=== PATIENT | male | born 1980 | race Caucasian/White ===

== ENCOUNTER 2023-02-16 04:05 | Emergency (ER) | payer OTHER, SELFPAY ==
--- NOTE | ~2023-02-16 | CT_ITS ---
EXAMINATION: CT ABDOMEN AND PELVIS WITHOUT CONTRAST CLINICAL INFORMATION: Flank pain. Question stone. COMPARISON: None available. TECHNIQUE: Multidetector volumetric imaging was performed from the superior aspect of the liver through the pubic symphysis. Sagittal and coronal reformatted images were obtained on the technologist's workstation. This CT examination was performed using dose optimization techniques as appropriate, variously including the following: *Automated exposure control *Adjustment of mA and/or kV according to patient size (this includes techniques or standardized protocols for targeted exams where dose is matched to indication/reason for exam; i.e. extremities or head) *Use of iterative reconstruction technique DLP: 506 mGy-cm FINDINGS: LUNG BASES: The visualized lung bases are unremarkable. LIVER, GALLBLADDER, AND BILIARY TREE: The liver is normal in size, shape, and attenuation. No focal hepatic lesion or biliary ductal dilatation is present. The gallbladder is unremarkable with no evidence of radiopaque gallstones, gallbladder wall thickening, or obvious pericholecystic inflammatory changes. PANCREAS: Unremarkable. SPLEEN: Unremarkable. ADRENAL GLANDS: Unremarkable. KIDNEYS AND URETERS: The kidneys are normal in size, shape, and attenuation. Mild right hydroureteronephrosis. 0.2 cm calculus in the distal right ureter approximately 1 cm proximal to the right ureterovesicular junction. Nonobstructing right lower pole 0.2 cm calculus is 12 cm from the posterior axillary line. BLADDER: Unremarkable. GASTROINTESTINAL TRACT: The stomach is unremarkable. Normal caliber small bowel. No obstruction. The appendix is likely absent. Fecalization of the distal ileum suggestive of slow transit. No colonic wall thickening or inflammation. No free air or free fluid. ABDOMINAL WALL: No significant hernia is appreciated. LYMPH NODES: Normal. VASCULAR: Unremarkable. PELVIC VISCERA: The prostate and seminal vesicles are unremarkable. OSSEOUS STRUCTURES: Mild degenerative changes. No acute or suspicious abnormality. CT/CT abdomen pelvis wo IV con IMPRESSION: Mild right hydroureteronephrosis with a 0.2 cm distal ureteral obstructing calculus. Fleischner guidelines were followed.
[2023-02-16 04:07] VITALS: BP 127/79; PULSE 84; RESP 16; TEMP 36.4; O2SAT 98; BMI 29.9
--- NOTE | 2023-02-16 04:30 | ED_ITS ---
HPI - General Adult General Chief complaint: General Medical Stated complaint: Back pain/Nausea Time Seen by Provider: 02/16/23 04:23 Source: patient Mode of arrival: ambulatory Limitations: no limitations History of Present Illness HPI narrative: Patient with no significant past medical history woke up from sleep with bilateral flank pain more on the right than the left with right upper abdominal pain with nausea and vomiting very restless no urinary symptoms no hematuria no history of kidney stones no family history of kidney stones Related Data Previous Rx's Medication Instructions Recorded oxycodone 5 mg tablet 5 mg PO Q6H PRN pain #20 tabs 02/16/23 tamsulosin 0.4 mg capsule (Flomax) 0.4 mg PO BEDTIME #14 caps 02/16/23 Allergies Allergy/AdvReac Type Severity Reaction Status Date / Time ibuprofen [IBUPROFEN] Allergy Mild TACHYCARDIA Verified 02/16/23 05:52 Review of Systems Review of Systems: Yes all other systems are reviewed and are negative [facility] Social History Social History Alcohol intake: never Smoked in Last 30 Days: No Use of substances other than those prescribed or required for medical reasons: No Advance Directives: No Advance Directives Information Provided: No Physical Exam ED Vital Signs: Vital Signs - 24 hr 02/16/23 04:07 02/16/23 05:19 02/16/23 04:33 Temperature 97.6 F 98.0 F 98.1 F Pulse Rate 84 71 64 Respiratory Rate 16 13 16 Blood Pressure 127/79 114/80 122/83 Pulse Oximetry 98 97 96 Oxygen Delivery Method Room Air Room Air Room Air BMI result Body Mass Index 29.9 Appearance: Alert. Oriented X3. In moderate distress. ENT: Pharynx normal. Oral Mucosa moist Neck: Normal inspection. Neck supple. CVS: Normal heart rate and rhythm. Pulses normal. Respiratory: No respiratory distress. Equal air entry bilateral, no wheezing/rales/rhonchi Abdomen: Soft and nontender. Bowel sounds are present, no mass palpable, bilateral CVA tenderness back: No midline tenderness Skin: Skin warm and dry. Normal skin color. Normal skin turgor. Extremities: No lower extremity edema. No calf tenderness Neuro: Oriented X 3. No motor deficit. Medications Administered Discontinued Medications Generic Name Dose Route Start Last Admin Trade Name Freq PRN Reason Stop Dose Admin Sodium Chloride 1,000 mls @ 999 mls/hr 02/16/23 04:33 02/16/23 05:52 Ns IV 02/16/23 05:33 Infused .Q1H1M ONE Infusion Ketorolac Tromethamine 30 mg 02/16/23 05:09 02/16/23 05:15 Ketorolac Tromethamine 30 Mg/Ml Vial IVPUSH 02/16/23 05:10 30 mg ONCE ONE Administration Morphine Sulfate 4 mg 02/16/23 04:33 02/16/23 04:44 Morphine Sulfate 4 Mg/Ml Cartridge IVPUSH 02/16/23 04:34 4 mg ONCE ONE Administration Protocol Ondansetron HCl 4 mg 02/16/23 04:33 02/16/23 04:44 Ondansetron Hcl 4 Mg/2 Ml Vial IVPUSH 02/16/23 04:34 4 mg ONCE ONE Administration Tamsulosin HCl 0.4 mg 02/16/23 05:54 02/16/23 06:13 Tamsulosin Hcl 0.4 Mg Capsule PO 02/16/23 05:55 0.4 mg ONCE ONE Administration Medical Decision Making Medical Decision Making [facility] Narrative: Patient with acute flank pain CT scan showed Mild right hydroureteronephrosis with a 0.2 cm distal ureteral obstructing calculus patient feeling much better at this time after pain medication IV fluids pain is almost gone will discharge patient home on analgesics and Flomax advised to follow with urologist Lab Data [facility] Lab Attestation statement: I reviewed the patient's lab results. 02/16/23 05:59 02/16/23 05:59 Labs: Lab Results 02/16/23 02/16/23 02/16/23 Range/Units 05:59 05:59 06:15 WBC 5.0 (4.8-10.8) X10*3/uL RBC 4.57 L (4.60-5.80) X10*6/uL Hgb 13.5 L (14.0-18.0) g/dl Hct 41.5 L (42.0-52.0) % MCV 90.8 (80.0-98.0) fL MCH 29.5 (27.0-33.0) pg MCHC 32.5 (31.0-36.0) g/dl RDW 13.3 (11.0-16.0) % Plt Count 121 L (160-400) X10*3/uL MPV 11.8 (9.4-12.4) fL Immature Gran % (Auto) 0.2 (0.0-0.4) % Neut % (Auto) 72.9 (45-73) % Lymph % (Auto) 17.2 L (20-40) % [place] % (Auto) 5.5 (2-11) % Eos % (Auto) 3.4 (0-4) % Baso % (Auto) 0.8 (0-2) % Lymph # (Auto) 0.9 L (1.2-4.9) X10*3/uL [place] # (Auto) 0.3 (0.1-1.2) X10*3/uL Eos # (Auto) 0.2 (0.0-0.4) X10*3/uL Baso # (Auto) 0.0 (0.0-0.2) X10*3/uL Abs Immat Gran (auto) 0.01 (0.00-0.03) X10*3/uL Absolute Neuts (auto) 3.6 (2.0-8.3) x10*3/uL Absolute Nucleated RBC 0.000 (0.0-0.012) X10*3/uL Nucleated RBC % (auto) 0.0 (0.0-0.2) /100WBC Sodium 141 (135-145) mmol/L Potassium 4.3 (3.3-5.1) mmol/L Chloride 109 H (96-108) mmol/L Carbon Dioxide 25 (22-29) mmol/L Anion Gap 11 L (12-20) BUN 18 H (9-16) mg/dL Creatinine 1.04 (0.5-1.4) mg/dL Estim Creat Clear Calc 93.3 Estimated GFR > 60 Random Glucose 113 (60-115) mg/dL Calcium 7.9 L (8.4-10.2) mg/dL Total Bilirubin 1.1 H (0.0-1.0) mg/dL AST 20 (5-37) U/L ALT 34 (0-40) U/L Alkaline Phosphatase 37 L (39-117) U/L Total Protein 5.6 L (6.5-8.0) g/dL Albumin 3.6 (3.5-5.0) g/dL Urine Color Yellow Urine Appearance Clear Urine pH 5.5 (5.0-9.0) Ur Specific [place] 1.025 (1.005-1.025) Urine Protein Negative (Neg-Trace) mg/dL Urine Glucose (UA) Negative (Negative) mg/dL Urine Ketones Trace (Negative) mg/dL Urine Blood Large (3+) H (Negative) Urine Nitrite Negative (Negative) Ur Leukocyte Esterase Negative (Negative) Urine RBC >20 H (0-2) /HPF Urine WBC 0-5 (0-5) /HPF Ur Squamous Epith Cells 0-2 (0-2) /HPF Urine Bacteria None Seen (None Seen) Hyaline Casts 0-2 (0-2) /LPF Radiology Impression Discussion of test interpretation with radiology: I have reviewed the radiologist's reading. Radiologist Impression: CT/CT abdomen pelvis wo IV con IMPRESSION: Mild right hydroureteronephrosis with a 0.2 cm distal ureteral obstructing calculus. ? Discharge Plan Discharge Clinical Impression: Kidney stone on right side Patient Disposition: Home, Self-Care Instructions: Kidney Stones (ED) Additional Instructions: Drink plenty of fluids Pain medication as prescribed Flomax to keep the tube open till you pass the stone Follow-up with urologist if not better Prescriptions: New oxycodone 5 mg tablet 5 mg PO Q6H PRN (Reason: pain) Qty: 20 0RF Rx Instructions: Partial Fill upon patient request. tamsulosin [Flomax] 0.4 mg capsule 0.4 mg PO BEDTIME Qty: 14 0RF Referrals: Shiva Triana MD [Physician] - 1 week
[2023-02-16 04:33] VITALS: BP 122/83; PULSE 64; RESP 16; TEMP 36.7; O2SAT 96
[2023-02-16] MEDS: 0.9 % Sodium Chloride 1,000 ML 999 ML IV (04:44)
[2023-02-16] MEDS: Morphine Sulfate 4 MG/ML CARTRIDGE IVPUSH (04:44)
[2023-02-16] MEDS: ondansetron HCL 4 MG/2 ML VIAL IVPUSH (04:44)
[2023-02-16] MEDS: Ketorolac Tromethamine 30 MG/ML VIAL IVPUSH (05:15)
--- NOTE | 2023-02-16 05:17 | PC.NURSE ---
pt c/o lower back pain, n/v, multiple episodes of vomiting, pt is pacing and restless aox4
[2023-02-16 05:19] VITALS: BP 114/80; PULSE 71; RESP 13; TEMP 36.7; O2SAT 97
--- NOTE | 2023-02-16 05:24 | PC.NURSE ---
pt no longer pacing/restless, pt is resting quietly in bed, no apparent distress aox4 vs assessed, wnl will ctm
[2023-02-16 06:04] LABS: MANUAL DIFF FLAG NO
[2023-02-16 06:09] LABS: Basophils Percent Auto 0.8 % (0-2); Eosinophils Absolute Auto 0.2 X10*3/uL (0.0-0.4); Eosinophils Percent Auto 3.4 % (0-4); Hematocrit 41.5 % (42.0-52.0); Hemoglobin 13.5 g/dl (14.0-18.0); Imm Gran Abs Auto 0.01 X10*3/uL (0.00-0.03); Imm Gran Pct Auto 0.2 % (0.0-0.4); Lymphocytes Absolute Auto 0.9 X10*3/uL (1.2-4.9); Lymphocytes Percent Auto 17.2 % (20-40); Mean Corpuscular HGB Conc 32.5 g/dl (31.0-36.0); Mean Corpuscular Hemoglobin 29.5 pg (27.0-33.0); Mean Corpuscular Volume 90.8 fL (80.0-98.0); Mean Platelet Volume 11.8 fL (9.4-12.4); Monocytes Absolute Auto 0.3 X10*3/uL (0.1-1.2); Monocytes Percent Auto 5.5 % (2-11); Neutrophils Absolute Auto 3.6 x10*3/uL (2.0-8.3); Neutrophils Percent Auto 72.9 % (45-73); Platelet Count 121 X10*3/uL (160-400); Red Blood Count 4.57 X10*6/uL (4.60-5.80); Red Cell Distribution Width 13.3 % (11.0-16.0)
[2023-02-16] MEDS: Tamsulosin HCL 0.4 MG CAPSULE PO (06:13)
--- NOTE | 2023-02-16 06:15 | PC.NURSE ---
this nurse taz labs and sent vias tube system urine obtained and sent to lab
[2023-02-16 06:22] LABS: Appearance Urine Clear; Color Urine Yellow; Glucose Urine UA Negative (Negative); Leukocyte Esterase Urine Negative (Negative); Nitrite Urine Negative (Negative); PH 5.5 (5.0-9.0); Specific Gravity - Urine 1.025 (1.005-1.025); UMIC TRIGGER UACC YES; Urine Blood Large (3+) (Negative); Urine Ketones Trace mg/dL (Negative); Urine Protein Negative (Neg-Trace)
[2023-02-16 06:30] LABS: Alanine Aminotransferase 34 U/L (0-40); Albumin Level 3.6 g/dL (3.5-5.0); Alkaline Phosphatase 37 U/L (39-117); Anion Gap 11 (12-20); Aspartate Amino Transferase 20 U/L (5-37); Bilirubin Total 1.1 mg/dL (0.0-1.0); Blood Urea Nitrogen 18 mg/dL (9-16); Calcium 7.9 mg/dL (8.4-10.2); Carbon Dioxide 25 mmol/L (22-29); Chloride 109 mmol/L (96-108); Creatinine Clr Calc Pharmacy 93.3; Estimated Glomerular Filt Rate > 60; Glucose Random 113 mg/dL (60-115); Potassium 4.3 mmol/L (3.3-5.1); Sodium 141 mmol/L (135-145); Total Protein 5.6 g/dL (6.5-8.0)
[2023-02-16 06:35] LABS: Bacteria Urine None Seen (None Seen); Hyaline Casts Urine 0-2 /LPF (0-2); RBC Urine >20 /HPF (0-2); Squamous Epithelial Cell Urine 0-2 /HPF (0-2); WBC Urine 0-5 /HPF (0-5)
--- NOTE | 2023-02-16 06:38 | PC.NURSE ---
Discharge instructions given/explained to pt Ambulates safely/independently No apparent distress aox4 IV cath intact upon removal
== END 2023-02-16 06:38 | disposition home or self-care (01) ==
PROVIDERS: Emergency Provider Internal Medicine; PCP Internal Medicine
DX: N13.2 Hydronephrosis with renal and ureteral calculous obstruction (principal)
CPT/HCPCS: 36415; 74176; 80053; 81001; 85025; 96361; 96374; 96375; 99285; J1885; J2270; J2405

== ENCOUNTER 2023-04-25 11:27 | Outpatient (REF) | payer OTHER, SELFPAY ==
[2023-04-25 13:11] LABS: MANUAL DIFF FLAG NO
[2023-04-25 13:16] LABS: Basophils Percent Auto 0.6 % (0-2); Eosinophils Absolute Auto 0.4 X10*3/uL (0.0-0.4); Eosinophils Percent Auto 7.7 % (0-4); Hematocrit 49.6 % (42.0-52.0); Hemoglobin 16.7 g/dl (14.0-18.0); Lymphocytes Absolute Auto 1.9 X10*3/uL (1.2-4.9); Lymphocytes Percent Auto 38.9 % (20-40); Mean Corpuscular HGB Conc 33.7 g/dl (31.0-36.0); Mean Corpuscular Hemoglobin 30.1 pg (27.0-33.0); Mean Corpuscular Volume 89.4 fL (80.0-98.0); Mean Platelet Volume 11.9 fL (9.4-12.4); Monocytes Absolute Auto 0.4 X10*3/uL (0.1-1.2); Monocytes Percent Auto 8.6 % (2-11); Neutrophils Absolute Auto 2.1 x10*3/uL (2.0-8.3); Neutrophils Percent Auto 44.2 % (45-73); Platelet Count 165 X10*3/uL (160-400); Red Blood Count 5.55 X10*6/uL (4.60-5.80); Red Cell Distribution Width 12.7 % (11.0-16.0); White Blood Count 4.8 X10*3/uL (4.8-10.8)
[2023-04-25 13:30] LABS: Alanine Aminotransferase 44 U/L (0-40); Albumin Level 4.2 g/dL (3.5-5.0); Alkaline Phosphatase 42 U/L (39-117); Anion Gap 10 (12-20); Aspartate Amino Transferase 25 U/L (5-37); Bilirubin Total 1.2 mg/dL (0.0-1.0); Blood Urea Nitrogen 17 mg/dL (9-16); Calcium 9.5 mg/dL (8.4-10.2); Carbon Dioxide 30 mmol/L (22-29); Chloride 106 mmol/L (96-108); Cholesterol 166 mg/dL; Estimated Glomerular Filt Rate > 60; Glucose Random 81 mg/dL (60-115); HDL Cholesterol 53 mg/dL; LDL Cholesterol Calculated 98 mg/dl; Potassium 4.3 mmol/L (3.3-5.1); Sodium 142 mmol/L (135-145); Triglycerides 78 mg/dL
== END 2023-04-25 11:28 | disposition home or self-care (01) ==
LOC: HO.10HDL 11:27
PROVIDERS: Visit Provider Internal Medicine
DX: Z00.00 Encounter for general adult medical examination without abnormal findings (principal); J45.909 Unspecified asthma, uncomplicated; Z13.31 Encounter for screening for depression
CPT/HCPCS: 36415; 80053; 80061; 85025

== ENCOUNTER 2023-12-03 07:58 | Emergency (ER) | payer OTHER, SELFPAY ==
--- NOTE | ~2023-12-03 | CT_ITS ---
EXAMINATION: CT ABDOMEN AND PELVIS WITHOUT CONTRAST CLINICAL INFORMATION: Right-sided flank pain. Urinary hesitancy. COMPARISON: CT abdomen pelvis February 16, 2023 TECHNIQUE: Multidetector volumetric imaging was performed from the superior aspect of the liver through the pubic symphysis. Sagittal and coronal reformatted images were obtained on the technologist's workstation. This CT examination was performed using dose optimization techniques as appropriate, variously including the following: *Automated exposure control *Adjustment of mA and/or kV according to patient size (this includes techniques or standardized protocols for targeted exams where dose is matched to indication/reason for exam; i.e. extremities or head) *Use of iterative reconstruction technique DLP: 554 mGy-cm FINDINGS: Visualized lung bases demonstrate mild dependent atelectasis. The liver is normal in size. The gallbladder is normal in appearance. The pancreas, spleen and adrenal glands are unremarkable. Symmetrically sized kidneys. There is mild right-sided hydronephrosis secondary to a 2 mm calculus within the distal right ureter, almost identical in appearance to CT imaging from February 16, 2023. No other renal calculi are noted within either kidney. There is no hydronephrosis of either kidney. Normal caliber loops of small and large bowel. Mild colonic diverticulosis without CT evidence to suggest active diverticulitis. Surgical changes of the cecum consistent with prior appendectomy. Normal caliber abdominal aorta. No retroperitoneal lymphadenopathy. Tiny fat-containing umbilical hernia. The bladder is decompressed and therefore not accurately evaluated. The prostate gland is not enlarged. No gross free pelvic fluid. No inguinal lymphadenopathy. Mild diffuse degenerative changes of the spine. Left L5 pars defect. CT/CT abdomen pelvis wo IV con IMPRESSION: Mild right-sided hydronephrosis secondary to a 2 mm calculus within the distal right ureter, almost identical in appearance to CT imaging from February 16, 2023. Fleischner guidelines were followed.
[2023-12-03 08:10] VITALS: BP 126/80; PULSE 70; RESP 18; TEMP 36.2; O2SAT 98; BMI 29.7
--- NOTE | 2023-12-03 08:53 | ED.GENADULT ---
HPI - General Adult General Chief complaint: General Medical Stated complaint: Kidney stone Time Seen by Provider: 12/03/23 08:53 Source: patient, RN notes reviewed and old records reviewed Mode of arrival: ambulatory History of Present Illness HPI narrative: 43-year-old male with past medical history of renal stones presenting to the ED complaining of right flank pain radiating to right lower quadrant with associated urinary hesitancy and feeling of incomplete emptying x this morning. Admits symptoms feel similar to prior stones in the past. Reports associated nausea and vomiting. Denies fever/chills, dysuria/hematuria Related Data Previous Rx's Medication Instructions Recorded oxycodone 5 mg tablet 5 mg PO Q6H PRN pain #20 tabs 02/16/23 tamsulosin 0.4 mg capsule (Flomax) 0.4 mg PO BEDTIME #14 caps 02/16/23 oxycodone-acetaminophen 5 mg-325 1 tab PO Q8H PRN pain (scale score 12/03/23 mg tablet (Percocet) 7-10) 3 days #9 tabs tamsulosin 0.4 mg capsule (Flomax) 0.4 mg PO DAILY #14 caps 12/03/23 Allergies Allergy/AdvReac Type Severity Reaction Status Date / Time ibuprofen [IBUPROFEN] Allergy Mild TACHYCARDIA Verified 12/03/23 08:15 Review of Systems Review of Systems: Constitutional: No Fever, No Chills ENT/Mouth: No Ear Pain, No Nasal Congestion, No sore throat, No Rhinorrhea, No Swallowing Difficulty Cardiovascular: No Chest Pain, No SOB Respiratory: No Cough, No Sputum Gastrointestinal: +Nausea,+ Vomiting, No Diarrhea, No Constipation, + Abdominal pain Genitourinary: No Dysuria, No Urinary Frequency, No Hematuria, No Urinary Incontinence/retention, +hesitancy/Urgency, No Flank Pain Musculoskeletal: No joint pain, No Myalgias Skin: No Skin Lesions, No rash Neuro: No Weakness Yes all other systems are reviewed and are negative Constitutional: Constitutional: Reports as per [facility] Past Medical History Attestation statement: The following information was validated with the patient. Source: old records reviewed Onset Date is defined in the Problem List Problems that require an onset date and time if occurred within 24 hrs of arrival to the ED Aortic Dissection and Rupture; Neurologic impairment; Cardiopulmonary Arrest; Endotracheal Intubation; Insertion or Replacement of Mechanical Circulatory Assist Device Social History Social History Alcohol intake: never Smoked in Last 30 Days: No Use of substances other than those prescribed or required for medical reasons: No Advance Directives: No Physical Exam ED Vital Signs: Vital Signs - 24 hr 12/03/23 08:10 12/03/23 09:38 12/03/23 12:05 Temperature 97.1 F 97.7 F Pulse Rate 70 62 73 Respiratory Rate 18 18 18 Blood Pressure 126/80 108/54 L 120/73 Pulse Oximetry 98 98 98 Oxygen Delivery Method Room Air Room Air Room Air BMI result Body Mass Index 29.7 Const Other: appears uncomfortable General: cooperative and no acute distress Orientation/consciousness: patient oriented x3 Limitations: no limitations HENMT Head: Yes normal to inspection and Yes atraumatic Ears: hearing grossly normal bilaterally General nose exam: Normal external nose present Face and sinus: Yes normal facial exam Eyes General: appearance normal, both eyes and all related structures EOM: EOMs intact bilaterally Neck Neck: Yes normal visual inspection and Yes no meningeal signs Resp Effort & Inspection: normal respiratory effort and no respiratory distress Auscultation: clear to auscultation bilaterally Cardio Rate: regular rate Heart sounds: S1 normal heart sound present and S2 normal heart sound present GI Inspection: Yes normal to inspection Palpation (GI): Soft to palpation, Tenderness to palpation present (GI) in the RLQ and suprapubicly; with no rebound tenderness, no guarding and not rigid General: Yes CVA tenderness on the right Back/Spine/Pelvis Back: CVA tenderness Skin Rashes: no rashes Wounds: no wounds Neuro General: patient oriented x3, tone normal and no meningeal signs Cranial nerves: Yes CN's II-XII intact bilaterally Gait exam (Neuro): Normal gait present Extrem General: Yes normal to inspection Course Course Course Narrative: -labs reassuring. UA with RBCs, not infected CT abdomen pelvis wo IV con IMPRESSION: Mild right-sided hydronephrosis secondary to a 2 mm calculus within the distal right ureter, almost identical in appearance to CT imaging from February 16, 2023. Fleischner guidelines were followed. > 1124--on re-evaluation patient still writhing/standing and hunched over in pain, appears very uncomfortable. Recently receive 2nd dose of IV morphine, will give IV Dilaudid and Reglan consult Urology, Dr. Alves -Urology recommended 1mg of Ativan, 20mg of Prednisone x1 time dose, and Toradol (although will avoid Toradol due to patient's adverse reaction to ibuprofen), 2mm stone will pass as outpatient, recommended discharge home with Flomax. Will order additional pain control and re-evaluate for potential discharge if pain controlled -1352-on re-evaluation patient reports symptomatic improvement. Feels safe for discharge home at this time. Recommended close Urology follow-up Results discussed with patient including worrisome signs and symptoms and strict return precautions, and when to return to the emergency department. They verbalized understanding and feel safe for discharge at this time. Medications Administered Discontinued Medications Generic Name Dose Route Start Last Admin Trade Name Freq PRN Reason Stop Dose Admin Hydromorphone HCl 1 mg 12/03/23 11:23 12/03/23 11:30 Hydromorphone Hcl 1 Mg/Ml Syringe IVPUSH 12/03/23 11:24 1 mg ONCE ONE Administration Protocol Sodium Chloride 1,000 mls @ 999 mls/hr 12/03/23 09:00 12/03/23 10:13 Ns IV 12/03/23 10:00 Infused .Q1H1M ELLIE Infusion Sodium Chloride 1,000 mls @ 999 mls/hr 12/03/23 10:45 12/03/23 12:04 Ns IV 12/03/23 11:45 Infused .Q1H1M ELLIE Infusion Lorazepam 1 mg 12/03/23 11:48 12/03/23 12:03 Lorazepam 1 Mg Tablet PO 12/03/23 11:49 1 mg ONCE ONE Administration Metoclopramide HCl 10 mg 12/03/23 11:23 12/03/23 11:30 Metoclopramide Hcl 10 Mg/2 Ml Vial IVPUSH 12/03/23 11:24 10 mg ONCE ONE Administration Morphine Sulfate 2 mg 12/03/23 08:56 12/03/23 09:12 Morphine Sulfate 2 Mg/Ml Cartridge IVPUSH 12/03/23 08:57 2 mg ONCE ONE Administration Protocol Morphine Sulfate 2 mg 12/03/23 10:30 12/03/23 11:00 Morphine Sulfate 2 Mg/Ml Cartridge IVPUSH 12/03/23 10:31 2 mg ONCE ONE Administration Protocol Ondansetron HCl 4 mg 12/03/23 08:56 12/03/23 09:12 Ondansetron Hcl 4 Mg/2 Ml Vial IVPUSH 12/03/23 08:57 4 mg ONCE ONE Administration Prednisone 20 mg 12/03/23 11:48 12/03/23 12:03 Prednisone 20 Mg Tablet PO 12/03/23 11:49 20 mg ONCE ONE Administration Tamsulosin HCl 0.4 mg 12/03/23 10:34 12/03/23 11:00 Tamsulosin Hcl 0.4 Mg Capsule PO 12/03/23 10:35 0.4 mg ONCE ONE Administration Medical Decision Making Medical Decision Making [facility] Narrative: 43-year-old male with past medical history of renal stones presenting to the ED complaining of right flank pain radiating to right lower quadrant with associated urinary hesitancy and feeling of incomplete emptying x this morning. On exam vital signs stable, appears uncomfortable, right CVAT noted as well as right lower quadrant/suprapubic tenderness, no rebound or guarding. Concern for renal stone vs UTI/pyelo. Cholecystitis/lithiasis and pancreatitis and appendicitis on differential however lower. Lower suspicion for colitis/diverticulitis or SBO Plan: Labs, UA, CT AP, IVF, pain control, re-evaluate Please refer to course for remaining clinical decision making, interpretation of labs/imaging results, and discussions with consultants and/or family members. Differential Diagnosis Differential Diagnoses: The differential diagnosis associated with the presentation includes As above Admission/Observation Consideration of admission/observation: Escalation of care including admission/observation considered Consult Healthcare Provider Management of the patient was discussed with: Supervisor [employer] (Urology) Lab Data [facility] Lab Attestation statement: I reviewed the patient's lab results. 12/03/23 09:12 12/03/23 09:12 Labs: Lab Results 12/03/23 12/03/23 Range/Units 09:03 09:12 WBC 8.2 (4.8-10.8) X10*3/uL RBC 5.32 (4.60-5.80) X10*6/uL Hgb 15.7 (14.0-18.0) g/dl Hct 46.8 (42.0-52.0) % MCV 88.0 (80.0-98.0) fL MCH 29.5 (27.0-33.0) pg MCHC 33.5 (31.0-36.0) g/dl RDW 12.7 (11.0-16.0) % Plt Count 190 (160-400) X10*3/uL MPV 10.9 (9.4-12.4) fL Immature Gran % (Auto) 0.2 (0.0-0.4) % Neut % (Auto) 78.2 H (45-73) % Lymph % (Auto) 14.6 L (20-40) % [place] % (Auto) 4.5 (2-11) % Eos % (Auto) 2.1 (0-4) % Baso % (Auto) 0.4 (0-2) % Lymph # (Auto) 1.2 (1.2-4.9) X10*3/uL [place] # (Auto) 0.4 (0.1-1.2) X10*3/uL Eos # (Auto) 0.2 (0.0-0.4) X10*3/uL Baso # (Auto) 0.0 (0.0-0.2) X10*3/uL Abs Immat Gran (auto) 0.02 (0.00-0.03) X10*3/uL Absolute Neuts (auto) 6.4 (2.0-8.3) x10*3/uL Absolute Nucleated RBC 0.000 (0.0-0.012) X10*3/uL Nucleated RBC % (auto) 0.0 (0.0-0.2) /100WBC Sodium 143 (135-145) mmol/L Potassium 4.1 (3.3-5.1) mmol/L Chloride 108 (96-108) mmol/L Carbon Dioxide 27 (22-29) mmol/L Anion Gap 12 (12-20) BUN 17 H (9-16) mg/dL Creatinine 1.14 (0.5-1.4) mg/dL Estim Creat Clear Calc 83.8 Estimated GFR > 60 Random Glucose 154 H (60-115) mg/dL Calcium 9.2 (8.4-10.2) mg/dL Magnesium 2.0 (1.6-2.6) mg/dL Total Bilirubin 0.7 (0.0-1.0) mg/dL Direct Bilirubin 0.3 (0.0-0.5) mg/dL AST 19 (5-37) U/L ALT 28 (0-40) U/L Alkaline Phosphatase 37 L (39-117) U/L Total Protein 7.3 (6.5-8.0) g/dL Albumin 4.1 (3.5-5.0) g/dL Lipase 23 (8-78) U/L Urine Color Yellow Urine Appearance Clear Urine pH 5.0 (5.0-9.0) Ur Specific [place] >= 1.030 H (1.005-1.025) Urine Protein Trace (Neg-Trace) mg/dL Urine Glucose (UA) Negative (Negative) mg/dL Urine Ketones Trace (Negative) mg/dL Urine Blood Large (3+) H (Negative) Urine Nitrite Negative (Negative) Ur Leukocyte Esterase Negative (Negative) Urine RBC >20 H (0-2) /HPF Urine WBC 0-5 (0-5) /HPF Ur Squamous Epith Cells 0-2 (0-2) /HPF Urine Bacteria None Seen (None Seen) Hyaline Casts 3-5 (0-2) /LPF Independent Interpretation I performed an independent interpretation of an: CT Scan Radiology Impression Discussion of test interpretation with radiology: I have reviewed the radiologist's reading. External Record Review External record reviewed: Inpatient record, Office record, Outpatient record, Prior outpatient labs, Prior outpatient radiology, Primary care record and Outside ED record Tests considered The following testing was considered but not selected: As above Prescription Management I considered prescription management with: Pain Medication Chronic Conditions Patient?s care impacted by: Other (renal stones) Critical Care Time Critical Care Time Critical Care Time: Yes Total Critical Care Time: 35 Attestation: I have personally provided critical care time exclusive of time spent on separately billable procedures. Time includes review of lab data, radiology results, discussion with consultants, and monitoring for potential decompensation. Intervention performed as documented. Discharge Plan Discharge Clinical Impression: Right distal ureteral calculus Patient Disposition: Home, Self-Care Instructions: Ureteral Stones (ED) Additional Instructions: You have a kidney stone in her distal right ureter, this should pass on its own YOU NEED TO FOLLOW-UP WITH UROLOGY. Call today to make an appointment Flomax will help dilate the ureter to help a passing the stone Percocet is an opiate pain medication, take when pain is severe for the next 3 days. Be aware Percocet has Tylenol mixed in do not exceed 4 g in 1 day Prescriptions: New tamsulosin [Flomax] 0.4 mg capsule 0.4 mg PO DAILY Qty: 14 0RF oxycodone-acetaminophen [Percocet] 5-325 mg tablet 1 tab PO Q8H PRN (Reason: pain (scale score 7-10)) 3 Days Qty: 9 0RF Rx Instructions: Partial Fill upon patient request. No Action oxycodone 5 mg tablet 5 mg PO Q6H PRN (Reason: pain) Qty: 20 0RF Rx Instructions: Partial Fill upon patient request. tamsulosin [Flomax] 0.4 mg capsule 0.4 mg PO BEDTIME Qty: 14 0RF Referrals: [facility] [Provider Group] - 1 week Stand Alone Forms: Work/School Release Interventions: ED Discharge Assessment Last Done: 12/03/23 14:49 Discharge Date/Time: 12/03/23 14:56
--- NOTE | 2023-12-03 09:05 | PC.NURSE ---
pt seen by ED provider. urine obtained/sent to lab. pt currently going to CT at this time. will administer medications/draw labs when pt returns.
[2023-12-03 09:09] LABS: Appearance Urine Clear; Color Urine Yellow; Glucose Urine UA Negative (Negative); Leukocyte Esterase Urine Negative (Negative); Nitrite Urine Negative (Negative); Specific Gravity - Urine >= 1.030 (1.005-1.025); UMIC TRIGGER UACC YES; Urine Blood Large (3+) (Negative); Urine Ketones Trace mg/dL (Negative); Urine Protein Trace mg/dL (Neg-Trace)
[2023-12-03 09:11] LABS: Bacteria Urine None Seen (None Seen); RBC Urine >20 /HPF (0-2); Squamous Epithelial Cell Urine 0-2 /HPF (0-2); WBC Urine 0-5 /HPF (0-5)
[2023-12-03] MEDS: Morphine Sulfate 2 MG/ML CARTRIDGE IVPUSH ×2 (09:12→11:00)
[2023-12-03] MEDS: 0.9 % Sodium Chloride 1,000 ML 999 ML IV ×2 (09:12→11:01)
[2023-12-03] MEDS: ondansetron HCL 4 MG/2 ML VIAL IVPUSH (09:12)
--- NOTE | 2023-12-03 09:17 | PC.NURSE ---
pt returned from CT at this time. 20gIV placed in the left AC - labs drawn and sent to lab. medication administered per provider order.
[2023-12-03 09:19] LABS: Basophils Percent Auto 0.4 % (0-2); Eosinophils Absolute Auto 0.2 X10*3/uL (0.0-0.4); Eosinophils Percent Auto 2.1 % (0-4); Hematocrit 46.8 % (42.0-52.0); Hemoglobin 15.7 g/dl (14.0-18.0); Imm Gran Abs Auto 0.02 X10*3/uL (0.00-0.03); Imm Gran Pct Auto 0.2 % (0.0-0.4); Lymphocytes Absolute Auto 1.2 X10*3/uL (1.2-4.9); Lymphocytes Percent Auto 14.6 % (20-40); MANUAL DIFF FLAG NO; Mean Corpuscular HGB Conc 33.5 g/dl (31.0-36.0); Mean Corpuscular Hemoglobin 29.5 pg (27.0-33.0); Mean Platelet Volume 10.9 fL (9.4-12.4); Monocytes Absolute Auto 0.4 X10*3/uL (0.1-1.2); Monocytes Percent Auto 4.5 % (2-11); Neutrophils Absolute Auto 6.4 x10*3/uL (2.0-8.3); Neutrophils Percent Auto 78.2 % (45-73); Platelet Count 190 X10*3/uL (160-400); Red Blood Count 5.32 X10*6/uL (4.60-5.80); Red Cell Distribution Width 12.7 % (11.0-16.0); White Blood Count 8.2 X10*3/uL (4.8-10.8)
[2023-12-03 09:38] VITALS: BP 108/54; PULSE 62; RESP 18; O2SAT 98
[2023-12-03 09:43] LABS: Alanine Aminotransferase 28 U/L (0-40); Albumin Level 4.1 g/dL (3.5-5.0); Alkaline Phosphatase 37 U/L (39-117); Anion Gap 12 (12-20); Aspartate Amino Transferase 19 U/L (5-37); Bilirubin Direct 0.3 mg/dL (0.0-0.5); Bilirubin Total 0.7 mg/dL (0.0-1.0); Blood Urea Nitrogen 17 mg/dL (9-16); Calcium 9.2 mg/dL (8.4-10.2); Carbon Dioxide 27 mmol/L (22-29); Chloride 108 mmol/L (96-108); Creatinine Clr Calc Pharmacy 83.8; Estimated Glomerular Filt Rate > 60; Glucose Random 154 mg/dL (60-115); Lipase 23 U/L (8-78); Potassium 4.1 mmol/L (3.3-5.1); Sodium 143 mmol/L (135-145); Total Protein 7.3 g/dL (6.5-8.0)
--- NOTE | 2023-12-03 09:44 | PC.NURSE ---
pt still verbalizing 10/10 right lower back pain despite medication administration. pt seemingly uncomfortable/tearful. will notify provider.
[2023-12-03] MEDS: Tamsulosin HCL 0.4 MG CAPSULE PO (11:00)
--- NOTE | 2023-12-03 11:04 | PC.NURSE ---
pt medicated per provider order.
--- NOTE | 2023-12-03 11:28 | PC.NURSE ---
pt seen by ED provider. pt still verbalizing 10/10 right lower flank pain/nausea/dizziness at this time. pt hunched forward/standing d/t increase pain. additional medication administered per JAN.
[2023-12-03] MEDS: Metoclopramide HCl 10 MG/2 ML VIAL IVPUSH (11:30)
[2023-12-03] MEDS: HYDROmorphone HCl 1 MG/ML SYRINGE IVPUSH (11:30)
[2023-12-03] MEDS: LORazepam 1 MG TABLET PO (12:03)
[2023-12-03] MEDS: predniSONE 20 MG TABLET PO (12:03)
[2023-12-03 12:05] VITALS: BP 120/73; PULSE 73; RESP 18; TEMP 36.5; O2SAT 98
--- NOTE | 2023-12-03 12:05 | PC.NURSE ---
medication administered per provider order.
== END 2023-12-03 14:56 | disposition home or self-care (01) ==
PROVIDERS: Physician Assistant; Emergency Provider Emergency Medicine; PCP Internal Medicine
DX: N13.2 Hydronephrosis with renal and ureteral calculous obstruction (principal); R10.9 Unspecified abdominal pain; R11.2 Nausea with vomiting, unspecified
CPT/HCPCS: 36415; 74176; 80048; 80076; 81001; 83690; 83735; 85025; 96361; 96374; 96375; 96376; 99284; J1170; J2270; J2405; J2765